=== PATIENT | female | born 1965 | race African-American/Black ===

== ENCOUNTER 2025-08-12 10:22 | Emergency (ER) | payer MEDICAID, OTHER ==
[~2025-08-12] VITALS: Ht 165.1 cm; Wt 69.0 kg
[2025-08-12 10:39] VITALS: TEMP 36.9; O2SAT 100
[2025-08-12 11:17] LABS: BASOPHILS % 0.4 % (0.0-2.0); EOSINOPHILS % 0.5 % (0.0-5.0); HEMATOCRIT. 39.5 % (36.0-48.0); HEMOGLOBIN. 13.0 g/dL (12.0-16.0); LYMPHOCYTES % 22.7 % (20.0-50.0); MEAN PLATELET VOLUME 7.4 fl (7.4-10.4); MONOCYTES % 4.9 % (2.0-8.0); NEUTROPHILS % 71.5 % (40.0-76.0); PLATELET 337 x1000/uL (130-400); RED BLOOD CELL COUNT 4.30 mill/uL (4.2-5.4); RED CELL DISTRIBUTION WIDTH 14.6 % (11.6-14.6)
[2025-08-12 11:31] LABS: CREATININE 0.7 mg/dL (0.6-1.0); UREA NITROGEN BLOOD 8 mg/dL (9-23)
[2025-08-12] MEDS: HYDROCODONE/ACETAMINOPHEN 5/325MG TABLET PO ONE (12:08)
[2025-08-12] MEDS: MECLIZINE 25MG TABLET PO ONE (12:08)
[2025-08-12] MEDS: ONDANSETRON 4MG ODT PO ONE (12:08)
[2025-08-12] MEDS: KETOROLAC 30MG/ML VIAL IM ONE (13:22)
[2025-08-12 13:26] LABS: CLARITY URINE CLEAR (CLEAR); COLOR URINE YELLOW (YELLOW); GLUCOSE URINE NEGATIVE (NEGATIVE); KETONES URINE 1+ (NEGATIVE); LEUKOCYTE ESTERASE URINE 2+ (NEGATIVE); NITRITE URINE POSITIVE (NEGATIVE); OCCULT BLOOD URINE TRACE (NEGATIVE); PH URINE 5.5 (4.5-8.0); PROTEIN URINE NEGATIVE (NEGATIVE); SPECIFIC GRAVITY URINE 1.008 (1.005-1.030); UROBILINOGEN URINE 0.2 E.U./dL (0.2-1.0)
[2025-08-12] MEDS: LIDOCAINE HCL 1% 20ML VIAL INFIL ONE (13:45)
[2025-08-12] MEDS: CEFTRIAXONE SODIUM 1G VIAL IM ONE (13:45)
[2025-08-12 13:51] LABS: *AMPHETAMINES SCREEN URINE NEGATIVE (NEGATIVE); *BARBITURATES SCREEN URINE NEGATIVE (NEGATIVE); *BENZODIAZEPINES SCREEN URINE NEGATIVE (NEGATIVE); *COCAINE SCREEN URINE NEGATIVE (NEGATIVE); CANNABINOID URINE SCREEN NEGATIVE (NEGATIVE); ECSTASY MDMA SCREEN URINE NEGATIVE (NEGATIVE); METHADONE URINE SCREEN NEGATIVE (NEGATIVE); OPIATES URINE SCREEN NEGATIVE (NEGATIVE); PHENCYCLIDINE URINE SCREEN NEGATIVE (NEGATIVE)
[2025-08-12 13:58] LABS: SQUAMOUS EPITHELIAL CELL URINE FEW /lpf (RARE/1+)
[2025-08-12] MEDS ORDERED: CEFP200T13 MT (13:59)
[2025-08-12] MEDS ORDERED: FEO PR (13:59)
[2025-08-12] MEDS ORDERED: POLY119P2 MT (13:59)
[2025-08-12 14:01] LABS: BACTERIA URINE 3+; RBC URINE NONE SEEN /hpf (0-2)
[2025-08-12 14:29] VITALS: BP 138/87; PULSE 74; RESP 18; O2SAT 100
[2025-08-12 15:06] LABS: TROPONIN I HIGH SENSITIVITY 5 ng/L (3.0-34)
[2025-08-12 15:08] LABS: ASPARTATE AMINOTRANSFERASE 16 IU/L (<34); BILIRUBIN DIRECT < 0.1 mg/dL (<=3.0); BILIRUBIN TOTAL 0.3 mg/dL (0.1-1.0); PHOSPHORUS 2.6 mg/dL (2.5-4.9); PROTEIN TOTAL 8.5 g/dL (6.0-8.3)
== END 2025-08-12 14:35 | disposition home or self-care (01) ==
LOC: ER 10:35
DX: N39.0 Urinary tract infection, site not specified (principal); K56.41 Fecal impaction; Z79.899 Other long term (current) drug therapy
CPT/HCPCS: 80076; 80305; 80048; 81003; 80320; 83880; 83690; 83735; 84100; 85025; 87086; 84484; 36415; 71045; 70450; 74176; 93005; 96372; 99285; J8597; Q0162; J0696; J1885; J2003; G0480